=== PATIENT | male | born 1960 | race Caucasian/White ===

== ENCOUNTER 2023-06-11 09:36 | Day surgery (SDC) | payer OTHER ==
[~2023-06-11] VITALS: Ht 162.6 cm; Wt 62.1 kg
[2023-06-11] MEDS ORDERED: fentaNYL citrate 0.05 MG/ML VIAL ONE ×2 (12:33→12:47)
[2023-06-11] MEDS ORDERED: MIDAZOLAM 2 MG/2 ML VIAL ONE ×2 (12:33→12:47)
== END 2023-06-11 14:00 | disposition home or self-care (01) ==
LOC: MOR 09:36 → MMU 09:36 → MOR 14:00
PROVIDERS: ATTEND Internal Medicine Gastroenterology
DX: K70.30 Alcoholic cirrhosis of liver without ascites (principal); I85.10 Secondary esophageal varices without bleeding; K31.89 Other diseases of stomach and duodenum; I10 Essential (primary) hypertension; I25.10 Atherosclerotic heart disease of native coronary artery without angina pectoris; E11.40 Type 2 diabetes mellitus with diabetic neuropathy, unspecified; E78.00 Pure hypercholesterolemia, unspecified; F17.210 Nicotine dependence, cigarettes, uncomplicated; Z79.84 Long term (current) use of oral hypoglycemic drugs; Z79.899 Other long term (current) drug therapy
CPT/HCPCS: 82948; J2250; J3010